=== PATIENT | female | born 2000 | race Hispanic/Latino ===

== ENCOUNTER 2024-08-17 17:15 | Emergency (ER) | payer OTHER ==
[~2024-08-17] VITALS: Ht 147.3 cm; Wt 59.0 kg
[2024-08-17 21:00] VITALS: PULSE 63; RESP 16; TEMP 98.3
[2024-08-17] MEDS: IBUPROFEN 600 MG TAB PO STA (22:22)
[2024-08-17 22:23] VITALS: BP 111/84; PULSE 72; RESP 16; TEMP 98; O2SAT 99
== END 2024-08-17 22:25 | disposition home or self-care (01) ==
LOC: ER 22:05
DX: S90.31XA Contusion of right foot, initial encounter (principal); S00.83XA Contusion of other part of head, initial encounter; R55 Syncope and collapse; W20.8XXA Other cause of strike by thrown, projected or falling object, initial encounter; Y93.B3 Activity, free weights; Y92.89 Other specified places as the place of occurrence of the external cause
CPT/HCPCS: 70450; 99283